=== PATIENT | female | born 1975 | race Asian ===

== ENCOUNTER 2021-10-15 12:19 | Emergency (ER) | payer OTHER ==
[2021-10-15 12:40] VITALS: BP 131/76; PULSE 89; TEMP 99; BMI 25.7
[2021-10-15 14:14] LABS: BASO % 0.7 % (0-2.0); EOS % 1.2 % (0-4.5); HEMATOCRIT 40.9 % (32.4-45.2); HEMOGLOBIN 13.6 GM/dL (10.7-15.3); LYMPH % 27.6 % (8-40); MCH 30.6 pg (25.7-33.7); MCHC 33.2 g/dl (32.0-36.0); MEAN CELL VOLUME 92.2 fl (80-96); MEAN PLT VOLUME 7.6 fl (7.5-11.1); MONO % 9.5 % (3.8-10.2); PLATELET COUNT 317 10^3/uL (134-434); RBC 4.43 M/mm3 (3.60-5.2); WHITE BLOOD COUNT 6.6 K/mm3 (4.0-10.0)
[2021-10-15 14:41] LABS: ALBUMIN 4.2 g/dl (3.4-5.0); BLOOD UREA NITROGEN 17.8 mg/dL (7-18); CALCIUM 9.3 mg/dL (8.5-10.1)
[2021-10-15 14:44] LABS: CREATININE 0.7 mg/dL (0.55-1.3)
[2021-10-15 14:48] LABS: BILIRUBIN,TOTAL 0.6 mg/dL (0.2-1)
[2021-10-15 15:29] LABS: HIV INTERPRETATION NEGATIVE (NEGATIVE)
== END 2021-10-15 14:21 | disposition home or self-care (01) ==
LOC: JERFT 12:19
DX: S60.811A Abrasion of right wrist, initial encounter (principal); W50.4XXA Accidental scratch by another person, initial encounter
CPT/HCPCS: 36415; 80053; 85025; 86704; 86803; 87340; 87389; 87517; 99283-25

== ENCOUNTER 2023-04-27 18:50 | Emergency (ER) | payer OTHER ==
[2023-04-27 19:07] VITALS: BP 124/81; PULSE 84; RESP 16; TEMP 98.6; BMI 22.6
[2023-04-27] MEDS ORDERED: CLINDAMYCIN HCL 300 MG CAPSULE PO ONE (20:55)
[2023-04-27] MEDS ORDERED: IBUPROFEN 600 MG TABLET (FP) PO ONE ×2 (20:55→20:56)
[2023-04-27] MEDS ORDERED: CLINDAMYCIN HCL 150 MG CAPSULE (FP) ONE (20:57)
== END 2023-04-27 21:14 | disposition home or self-care (01) ==
LOC: JERFT 18:50
DX: L03.032 Cellulitis of left toe (principal); S90.932D Unspecified superficial injury of left great toe, subsequent encounter; M79.675 Pain in left toe(s); M79.89 Other specified soft tissue disorders; W22.8XXD Striking against or struck by other objects, subsequent encounter; Y93.9 Activity, unspecified; Y92.9 Unspecified place or not applicable
CPT/HCPCS: 73660-TC-FY; 87070; 87186; 87205; 99283-25